=== PATIENT | female | born 1965 | race Caucasian/White ===

== ENCOUNTER 2018-02-06 08:32 | Day surgery (SDC) | payer OTHER ==
[2018-02-06] MEDS ORDERED: LR 1,000 ML IV ONE (13:17)
[2018-02-06] MEDS ORDERED: MIDAZOLAM 2 MG/2 ML VIAL IVP ONE (14:10)
[2018-02-06] MEDS ORDERED: LR 500 ML IV PRN (14:13)
[2018-02-06] MEDS ORDERED: fentaNYL 100 MCG/2 ML INJ IVP PRN (14:13)
[2018-02-06] MEDS ORDERED: NALOXONE HCL 0.4 MG/ML INJ IVP PRN (14:13)
[2018-02-06] MEDS ORDERED: ONDANSETRON 4 MG/2 ML VIAL IVP PRN (14:13)
[2018-02-06] MEDS ORDERED: DEXAMETHASONE 4 MG/ML VIAL IVP PRN (14:13)
[2018-02-06] MEDS ORDERED: PROMETHAZINE HCL 25 MG/ML INJ IVP PRN (14:13)
--- NOTE | 2018-02-06 14:13 | PDANEPAE ---
ANE Past Medical History - Cardiovascular History Hx Hypertension: No Hx Arrhythmias: No Hx Chest Pain: No Hx Coronary Artery / Peripheral Vascular Disease: No Hx CHF / Valvular Disease: No Hx Palpitations: No - Pulmonary History Hx COPD: No Hx Asthma/Reactive Airway Disease: No Hx Recent Upper Respiratory Infection: No Hx Oxygen in Use at Home: No Hx Sleep Apnea: No Sleep Apnea Screening Result - Last Documented: Negative - Neurologic History Hx Cerebrovascular Accident: No Hx Seizures: No Hx Dementia: No - Endocrine History Hx Diabetes: No - Renal History Hx Renal Disorders: Yes Renal History Comment: Interstitial cystitis, hx of kidney stones - Liver History Hx Hepatic Disorders: No - Neurological & Psychiatric Hx Hx Neurological and Psychiatric Disorders: Yes Neurological / Psychiatric History Comment: PTSD, depression - Cancer History Hx Cancer: No - Congenital Disorder History Hx Congenital Disorders: No - GI History Hx Gastrointestinal Disorders: No - Surgical History Prior Surgeries: Cervical spine fusion, L wrist sx, bilateral carpal tunnel sx, appendectomy, lap band sx, lumbar spine fusion, lap fredy, L ulnar nerve sx, breast reduction, L knee menicus sx, abdomen cyst removal ANE Review of Systems Review of Systems: - Exercise capacity METS (RN): 2 METS ANE Patient History - Allergies Allergies/Adverse Reactions: Penicillins Allergy (Severe, Verified 02/19/12 07:43) Anaphylaxis erythromycin base [Erythromycin Base] Allergy (Intermediate, Verified 02/19/12 07:43) Rash gentamicin [Gentamicin] Allergy (Intermediate, Verified 02/19/12 07:43) Rash latex Allergy (Intermediate, Verified 02/19/12 07:43) Rash Sulfa (Sulfonamide Antibiotics) [Sulfa(Sulfonamide Antibiotics)] Allergy ( Intermediate, Verified 02/19/12 07:43) Rash tetracycline [Tetracycline] Allergy (Intermediate, Verified 02/19/12 07:43) Rash - Home Medications Home medications: home medication list seen and reviewed Home Medications: Clonazepam 2 mg PO 02/19/12 [Last Taken 1 Day Ago ~02/05/18] DULoxetine [Cymbalta 60 MG (RX)] 90 mg PO DAILY 02/19/12 [Last Taken 1 Day Ago ~ 02/05/18] Omeprazole 40 mg PO DAILY 02/19/12 [Last Taken 1 Day Ago ~02/05/18] Ondansetron Odt [Zofran Odt 4 mg (RX)] 4 mg PO Q4 PRN 02/19/12 [Last Taken 1 Day Ago ~02/05/18] Potassium 550mg 02/19/12 [Last Taken 1 Month Ago ~01/06/18] Gabapentin 900 mg 02/06/18 [Last Taken 1 Day Ago ~02/05/18] - NPO status NPO Status: no food or drink >8 hours NPO Since - Liquids (Date): 02/06/18 NPO Since - Liquids (Time): 13:30 NPO Since - Solids (Date): 02/06/18 NPO Since - Solids (Time): 13:30 - Anes Hx Anes Hx: no prior problems - Smoking Hx Smoking Status: Never smoked - Family Anes Hx Family Hx Anesthesia Complications: nothing ANE Labs/Vital Signs - Vital Signs Height: 157.48 cm Weight: 98.43 kg ANE Physical Exam - Airway Neck exam: FROM Mallampati Score: Class 1 Mouth exam: normal dental/mouth exam - Pulmonary Pulmonary: no respiratory distress, no rales or rhonchi, clear to auscultation - Cardiovascular Cardiovascular: regular rate and rhythym, no murmur, rub, or gallop - ASA Status ASA Status: II ANE Anesthesia Plan Anesthesia Plan: MAC
[2018-02-06] MEDS ORDERED: MIDAZOLAM 2 MG/2 ML VIAL ONE (14:20)
[2018-02-06] MEDS ORDERED: PROPOFOL 200 MG/20 ML VIAL ONE (14:20)
[2018-02-06] MEDS ORDERED: ONDANSETRON 4 MG/2 ML VIAL ONE ×2 (14:21→14:54)
[2018-02-06] MEDS ORDERED: INDOMETHACIN 50 MG SUPP PR PRN (14:23)
--- NOTE | 2018-02-06 14:23 | PDGENHP ---
History & Physical Chief Complaint: epigastric abdominal pain, nausea, vomiting. History of Present Illness: 52 year old female with a history of a lap band presents for evaluation of n,v, and epigastric abdominal pain. Pertinent Past, Social, Family History: PsurgH: appy, breast redxn, lap band. PMHx: PTSD, obesity Relevant Physical Exam: HEENT: anicteric. CV: RRR +s1s2. Lungs:CTAB. Abd: soft, nt, + BS Cardiorespiratory Assessment: ASA 2
[2018-02-06] MEDS ORDERED: LIDOCAINE 2% 2 ML INJ ONE (14:25)
[2018-02-06] MEDS ORDERED: NS 500 ML IV SCH (14:30)
--- NOTE | 2018-02-06 14:53 | GIREPORT ---
[facility] - Endoscopy Department Patient Name: Salome Chau Procedure Date: 02/06/2018 12:56 PM Patient Type: Outpatient Attending MD/ ER Physician: Olayinka Lara MD Procedure: Upper GI endoscopy Indications: Epigastric abdominal pain, Nausea with vomiting Patient Profile: 52 year old female presents for evaluation of epigastric pain, nausea, and vomiting. Providers: Olayinka Lara MD Medicines: Monitored Anesthesia Care Complications: No immediate complications. Estimated blood loss: Minimal. Description of Procedure: After obtaining informed consent, the endoscope was passed under direct vision. Throughout the procedure, the patient's blood pressure, pulse, and oxygen saturations were monitored continuously. The Endoscope was intro duced through the mouth, and advanced to the second part of duodenum. The [facility] er GI endoscopy was accomplished without difficulty. The patient tolerated th e procedure well. Findings: The examined esophagus was normal. Patchy mildly erythematous mucosa was found in the gastric body and in the gastric antrum. Biopsies were taken with a cold forceps for histology. The examined duodenum was normal. Biopsies for histology were taken wit h a cold forceps for evaluation of celiac disease. Estimated Blood Loss: Estimated blood loss was minimal. Post Op Diagnosis: - Normal esophagus. - Erythematous mucosa in the gastric body and antrum. Biopsied. - Normal examined duodenum. Biopsied. - Etiology? No cause of symptoms seen. Will await biopsy results. Bj nue PPI. F/u in office in 4 weeks. Recommendation: - Discharge patient to home (with escort). - Resume previous diet. - Continue present medications. - Await pathology results. - Follow an antireflux regimen. - Use a proton pump inhibitor PO BID. - Return to GI office in 4 weeks. - Thank you for allowing me to participate in the care of your patient. Attending Participation: I personally performed the entire procedure. Olayinka Lara MD Olayinka Lara MD 02/06/2018 2:53:14 PM This report has been signed electronicallyOlayinka Lara MD Number of Addenda: 0 Note Initiated On: 02/06/2018 12:56 PM [email or web address]
[2018-02-06] MEDS ORDERED: fentaNYL 100 MCG/2 ML INJ ONE (14:54)
--- NOTE | 2018-02-06 14:58 | POSTANESTH ---
Post Anesthetic Evaluation Cardiovascular Status: Normal, Stable, Similar to Pre-Op Cond Respiratory Status: Normal, Stable, Similar to Pre-op Cond. Level of Consciousness/Mental Status: Can Participate in Eval, Alert and Oriented Pain Control: Adequate, Prn Tx Ordered Nausea/Vomiting Control: Adequate, Prn Tx Ordered Complications Possibly Related to Anesthesia: None Noted
[2018-02-06 16:42] VITALS: BP 97/70
== END 2018-02-06 16:35 | disposition home or self-care (01) ==
LOC: FSGY 08:32
PROVIDERS: ATTEND Internal Medicine Gastroenterology
DX: R10.13 Epigastric pain (principal); R11.2 Nausea with vomiting, unspecified
CPT/HCPCS: J2250; J2405; J2704; J3010